=== PATIENT | male | born 1995 | race Caucasian/White ===

== ENCOUNTER 2017-04-24 08:20 | Emergency (ER) | payer SELFPAY ==
[2017-04-24] MEDS ORDERED: Triamcinolone Acetonide 40 MG/ML 1 ML MDV INJECT ONE (09:11)
[2017-04-24] MEDS ORDERED: cefTRIAXone 1 GM, Lidocaine 1% 2.1 ML IM ONE ×2 (09:13)
[2017-04-24] MEDS ORDERED: Aluminum Sulfate/Calcium Acetate Powder 1 Packet TOP ONE (09:19)
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
[2017-04-24 09:30] VITALS: BP 138/78
[2017-04-24] MEDS ORDERED: Triamcinolone Acetonide 0.1% Crm 80 GM Tube TOP ONE (09:34)
== END 2017-04-24 10:31 | disposition home or self-care (01) ==
LOC: JP.ED 08:20
DX: L23.7 Allergic contact dermatitis due to plants, except food (principal); L03.114 Cellulitis of left upper limb; F17.210 Nicotine dependence, cigarettes, uncomplicated
CPT/HCPCS: 99283; A9270; J0696; J3301

== ENCOUNTER 2018-10-18 20:01 | Emergency (ER) | payer SELFPAY ==
[2018-10-18 20:35] VITALS: BP 138/61
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
[2018-10-18] MEDS ORDERED: Iopamidol 612 MG/ML 100 ML Bottle IV SCH (21:00)
[2018-10-18] MEDS ORDERED: Sodium Chloride 0.9% 100 ML IV SCH (21:00)
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
== END 2018-10-18 22:44 | disposition home or self-care (01) ==
LOC: JP.ED 20:01
DX: R07.81 Pleurodynia (principal); V89.2XXA Person injured in unspecified motor-vehicle accident, traffic, initial encounter
CPT/HCPCS: 36415; 70450; 71260; 72125; 74177; 80053; 85027; 99284; J7030; Q9967

== ENCOUNTER 2021-10-23 08:16 | Emergency (ER) | payer SELFPAY ==
[2021-10-23 08:28] VITALS: BP 117/73; PULSE 109
[2021-10-23 09:46] LABS: CORONAVIRUS COVID-19 NAA POSITIVE (NEGATIVE)
== END 2021-10-23 10:17 | disposition home or self-care (01) ==
LOC: JP.ED 08:16
DX: U07.1 COVID-19 (principal)
CPT/HCPCS: 0241U; 36415; 71046; 71046-26; 80048; 84484; 85025; 93005; 93010; 99282; 99285-25